=== PATIENT | male | born 1985 | race African-American/Black ===

== ENCOUNTER 2018-06-28 23:06 | Emergency (ER) | payer SELFPAY ==
[~2018-06-28] VITALS: Ht 165.1 cm; Wt 160.0 kg
[2018-06-29] MEDS ORDERED: IBUPROFEN 600MG TABLET PO STA (00:51)
[2018-06-29] MEDS ORDERED: HYDROCODONE/ACETAMINOPHEN 5/325MG TABLET PO STA (00:54)
[2018-06-29] MEDS ORDERED: KETOROLAC 60MG/2ML VIAL IM STA (00:54)
[2018-06-29] MEDS ORDERED: TETANUS, DIPHTHERIA, PERTUSSIS VAC/PF 0.5ML (>7YR OLD) IM ONE (01:00)
[2018-06-29 02:06] VITALS: BP 129/51
== END 2018-06-29 02:40 | disposition home or self-care (01) ==
LOC: ER 23:06
DX: M54.42 Lumbago with sciatica, left side (principal); I10 Essential (primary) hypertension
CPT/HCPCS: 96372; 99283; J1885; Z7610